=== PATIENT | female | born 1995 | race Caucasian/White ===

== ENCOUNTER 2020-01-13 12:02 | Emergency (ER) | payer OTHER ==
[~2020-01-13] VITALS: Ht 167.6 cm; Wt 62.5 kg
[2020-01-13] MEDS ORDERED: IOHEXOL 350 MG/ML 100 ML VIAL. IV ONE (12:45)
--- NOTE | 2020-01-13 12:51 | RAD ---
EXAM: CT Head without IV contrast INDICATION: Reason: DIZZINESS, BILATERAL UPPER EXTREMITY NUMBNESS, DYSPHASIA, DROOPIN / Spl. Instructions: / History: TECHNIQUE: Multi-detector row CT images were obtained of the head without the use of IV contrast. All CT scans performed at this facility utilize dose optimization techniques as appropriate to the exam, including the following: Automated exposure control and adjustment of the mA and/or KV according to patient size (this includes techniques or standardized protocols for targeted exams where dose is indication/reason for exam). COMPARISON: None FINDINGS: BRAIN PARENCHYMA: No evidence of acute intraparenchymal hemorrhage or infarct. No abnormal parenchymal density or mass. VENTRICLES & EXTRA-AXIAL SPACES: Ventricles are within normal limits. Basilar cisterns are patent. No pathologic extra-axial fluid collection or mass. ORBITS: Orbital contents are unremarkable. SINUSES: Visualized paranasal sinuses and mastoid air cells are clear. OSSEOUS & SOFT TISSUES: Calvarium and skull base are intact. IMPRESSION: Unremarkable CT of the head without contrast. FOR INTERNAL CODING PURPOSES Critical result: Findings discussed with VINCENT SANTIAGO at 01/13/2020 12:45 PM. RESULT CODE: (C) Electronically signed by: Cristal Raymundo MD (01/13/2020 12:48 PM) [id number]
[2020-01-13 12:53] LABS: BASO % 0 % (0-3); EOS # 0.1 x10^3/uL (0.0-0.7); EOS % 1 % (0-3); HEMATOCRIT 40.1 % (36.0-47.0); HEMOGLOBIN 13.4 g/dL (12.0-15.5); LYMPH # 1.4 x10^3/uL (1.0-4.8); LYMPH % 16 % (24-48); MEAN CORPUSCULAR HEMOGLOBIN 29 pg (25-35); MEAN CORPUSCULAR HGB CONC 34 g/dL (31-37); MEAN CORPUSCULAR VOLUME 86 fL (79-100); MONO # 0.5 x10^3/uL (0.0-1.1); MONO % 5 % (0-9); NEUT # 6.7 x10^3uL (1.8-7.7); NEUT % 78 % (31-73); PLATELET COUNT 205 x10^3/uL (140-400); RED BLOOD COUNT 4.67 x10^6/uL (3.50-5.40); RED CELL DISTRIBUTION WIDTH 12.5 % (11.5-14.5); WHITE BLOOD COUNT 8.7 x10^3/uL (4.0-11.0)
[2020-01-13 12:59] LABS: PREG TEST PT QUAL NEGATIVE (NEG)
[2020-01-13] MEDS ORDERED: CONTRAST GIVEN. MC PRN (13:00)
[2020-01-13 13:03] LABS: BILIRUBIN,URINE NEG (NEG); CLARITY,URINE CLEAR; COLOR,URINE COLORLESS; GLUCOSE,URINE NEG (NEG)
[2020-01-13 13:04] LABS: BACTERIA,URINE 0 /HPF (0-FEW); NITRITE,URINE NEG (NEG); RBC,URINE 0 /HPF (0-2); UROBILINOGEN,URINE 0.2 mg/dL (0.2 mg/dL); WBC,URINE 0 /HPF (0-4)
--- NOTE | 2020-01-13 13:07 | RAD ---
Examination: PORTABLE CHEST 1V History: dizzy Comparison/Correlation: None Findings: Portable upright frontal view chest was obtained. Heart size and pulmonary vasculature are normal. No infiltrate or pleural effusion. No pneumothorax. Bony structures are unremarkable. Impression: No active disease. Electronically signed by: Narendra Aviles MD (01/13/2020 1:04 PM) [facility]
[2020-01-13 13:09] LABS: CALCIUM 9.6 mg/dL (8.5-10.1); CREATININE 0.8 mg/dL (0.6-1.0); GFR 88.1; POTASSIUM 3.1 mmol/L (3.5-5.1)
[2020-01-13 13:15] LABS: ALBUMIN 4.6 g/dL (3.4-5.0); ALBUMIN/GLOBULIN RATIO 1.4 (1.0-1.7); TOTAL BILIRUBIN 0.4 mg/dL (0.2-1.0); TOTAL PROTEIN 7.9 g/dL (6.4-8.2)
[2020-01-13 13:40] LABS: BARBITURATES NEG (NEG); BENZODIAZEPINES NEG (NEG); CANNABINOIDS NEG (NEG); COCAINE NEG (NEG); METHADONE NEG (NEG); OPIATES NEG (NEG); PHENCYCLIDINE NEG (NEG)
[2020-01-13 13:41] LABS: AMPHETAMINE/METHAMPHETAMINE NEG (NEG)
[2020-01-13] MEDS ORDERED: diphenhydrAMINE 50 MG/ML VIAL IVP ONE (13:45)
[2020-01-13] MEDS ORDERED: METOCLOPRAMIDE HCL 10 MG/2 ML VIAL. IVP ONE (13:45)
[2020-01-13] MEDS ORDERED: ACETAMINOPHEN 325 MG TABLET PO ONE (13:45)
--- NOTE | 2020-01-13 13:56 | RAD ---
Examination: CT ANGIOGRAPHY HEAD AND NECK History: Reason: aphasia / Spl. Instructions: / History: Comparison/Correlation: CT head without contrast performed earlier the same day EXAM: 1. CTA HEAD WITH AND WITHOUT CONTRAST. 2. CTA NECK WITH AND WITHOUT CONTRAST. TECHNIQUE: Computed tomographic angiography of the head and neck was performed following IV contrast according to arteriography protocol. Three-dimensional reconstructions were also performed. Maximum intensity projection images were provided. FINDINGS: Angiographic findings: The aortic arch has a typical branching pattern. There is no arch vessel stenosis. Both common carotid arteries are patent without stenosis. Both internal carotid arteries are patent without stenosis. The external carotid systems are patent. The vertebral arteries are patent. The basilar artery is patent. Both posterior cerebral arteries are patent. Left posterior communicating artery is visualized. Right posterior communicating artery is developmentally absent. The intracranial internal carotid arteries demonstrate no stenosis. The middle cerebral arteries are patent. The anterior cerebral arteries are patent. The anterior communicating artery is visualized. Nonangiographic findings: There is no intracranial hemorrhage. Prado-white differentiation is preserved. The ventricles are normal in size and position. The paranasal sinuses appear clear. The orbits are unremarkable. The temporal bones are unremarkable. Bone windows reveal no suspicious lesions. The lung apices demonstrate no acute abnormality. The parotid glands and submandibular glands are unremarkable. The thyroid gland demonstrates no suspicious lesions. There are no laryngeal or pharyngeal masses. There are no pathologically enlarged lymph nodes. IMPRESSION: No large vessel occlusion, aneurysm, or dissection identified. No abnormal enhancement on arterial phase images provided. Unremarkable exam. PQRS Compliance Statement - Stenosis calculations for CT, MR and conventional angiography are based upon measurement of the distal ICA diameter in accordance with the NASCET methodology. Stenosis calculations for carotid ultrasound studies are derived from validated velocity criteria which are known to correlate with the NASCET methodology. *One or more of the following individualized dose reduction techniques were utilized for this examination: 1. Automated exposure control. 2. Adjustment of the mA and/or kV according to patient size. 3. Use of iterative reconstruction technique. Electronically signed by: Narendra Aviles MD (01/13/2020 1:53 PM) [facility]
[2020-01-13] MEDS ORDERED: ONDANSETRON PF 4 MG/2 ML VIAL. IVP ONE (14:15)
--- NOTE | 2020-01-13 14:28 | PHYS DOC ---
Past History Past Medical History: No Pertinent History Past Surgical History: No Surgical History Alcohol Use: None General Adult EDM: Chief Complaint: NEURO SYMPTOMS/DEFICITS HPI: HPI: 24-year-old female who denies any significant past medical history, presents to the ED with complaints of sudden onset sore throat, dizziness, tingling and fingers with a headache that started just prior to arrival, reporting changes in her speech -slurred and inability to get the words out. LMP 2 weeks ago. Review of Systems: Review of Systems: Constitutional: Denies fever or chills Eyes: Denies change in visual acuity HENT: Denies nasal congestion or sore throat Respiratory: Denies cough or shortness of breath Cardiovascular: Denies chest pain or edema GI: Denies abdominal pain, nausea, vomiting, bloody stools or diarrhea : Denies dysuria Musculoskeletal: Denies back pain or joint pain Integument: Denies rash Neurologic: Denies headache, focal weakness or sensory changes Endocrine: Denies polyuria or polydipsia Lymphatic: Denies swollen glands Psychiatric: Denies depression or anxiety Heart Score: Risk Factors: Risk Factors: DM, Current or recent (<one month) smoker, HTN, HLP, family history of CAD, obesity. Risk Scores: Score 0 - 3: 2.5% MACE over next 6 weeks - Discharge Home Score 4 - 6: 20.3% MACE over next 6 weeks - Admit for Clinical Observation Score 7 - 10: 72.7% MACE over next 6 weeks - Early Invasive Strategies Current Medications: Current Meds: Current Medications Medications (Trade) Dose Ordered Sig/Juan Start Time Stop Time Status Last Admin Dose Admin Acetaminophen (Tylenol) 650 mg 1X ONCE 01/13/20 13:45 01/13/20 13:46 DC 01/13/20 13:41 650 MG Diphenhydramine HCl (Benadryl) 25 mg 1X ONCE 01/13/20 13:45 01/13/20 13:46 DC 01/13/20 13:41 25 MG Info (Do NOT chart on this entry -- for MONITORING) 1 each PRN DAILY PRN 01/13/20 13:00 01/15/20 12:59 Iohexol (Omnipaque 350 Mg/ml) 100 ml 1X ONCE 01/13/20 12:45 01/13/20 12:46 DC 01/13/20 12:47 100 ML Lorazepam (Ativan Inj) 0.5 mg 1X ONCE 01/13/20 13:15 01/13/20 13:16 DC 01/13/20 12:57 0.5 MG Metoclopramide HCl (Reglan Vial) 10 mg 1X ONCE 01/13/20 13:45 01/13/20 13:46 DC 01/13/20 13:42 10 MG Ondansetron HCl (Zofran) 8 mg 1X ONCE 01/13/20 14:15 01/13/20 14:17 DC 01/13/20 14:17 8 MG Allergies: Allergies: Allergies Coded Allergies Type Severity Reaction Last Updated Verified No Known Drug Allergies 01/13/20 No Physical Exam: PE: Constitutional: Well developed, well nourished, no acute distress on arrival, HENT: Normocephalic, atraumatic, bilateral external ears normal, oropharynx moist, no oral exudates, nose normal. []-failed swallow test Eyes: PERRLA, EOMI, conjunctiva normal, no discharge. [] Neck: Normal range of motion, no tenderness, supple, no stridor. [] Cardiovascular:Heart rate regular rhythm, no murmur [] Lungs & Thorax: Bilateral breath sounds clear to auscultation [] Abdomen: Bowel sounds normal, soft, no tenderness, no masses, no pulsatile masses. [] Skin: Warm, dry, no erythema, no rash. [] Back: No tenderness, no CVA tenderness. [] Extremities: No tenderness, no cyanosis, no clubbing, ROM intact, no edema. [] Neurologic: Alert and oriented X 3, normal motor function, normal sensory function, no focal deficits noted. [] Psychologic: Affect normal, judgement normal, mood normal. [] Current Patient Data: Labs: Laboratory Tests Test 01/13/20 12:28 01/13/20 12:46 01/13/20 13:25 White Blood Count 8.7 x10^3/uL (4.0-11.0) Red Blood Count 4.67 x10^6/uL (3.50-5.40) Hemoglobin 13.4 g/dL (12.0-15.5) Hematocrit 40.1 % (36.0-47.0) Mean Corpuscular Volume 86 fL (79-100) Mean Corpuscular Hemoglobin 29 pg (25-35) Mean Corpuscular Hemoglobin Concent 34 g/dL (31-37) Red Cell Distribution Width 12.5 % (11.5-14.5) Platelet Count 205 x10^3/uL (140-400) Neutrophils (%) (Auto) 78 % (31-73) H Lymphocytes (%) (Auto) 16 % (24-48) L Monocytes (%) (Auto) 5 % (0-9) Eosinophils (%) (Auto) 1 % (0-3) Basophils (%) (Auto) 0 % (0-3) Neutrophils # (Auto) 6.7 x10^3uL (1.8-7.7) Lymphocytes # (Auto) 1.4 x10^3/uL (1.0-4.8) Monocytes # (Auto) 0.5 x10^3/uL (0.0-1.1) Eosinophils # (Auto) 0.1 x10^3/uL (0.0-0.7) Basophils # (Auto) 0.0 x10^3/uL (0.0-0.2) Urine Collection Type Unknown Urine Color Colorless Urine Clarity Clear Urine pH 7.5 Urine Specific [place] 1.015 Urine Protein Neg (NEG-TRACE) Urine Glucose (UA) Neg mg/dL (NEG) Urine Ketones (Stick) Neg mg/dL (NEG) Urine Blood Trace (NEG) Urine Nitrite Neg (NEG) Urine Bilirubin Neg (NEG) Urine Urobilinogen Dipstick 0.2 mg/dL (0.2 mg/dL) Urine Leukocyte Esterase Neg (NEG) Urine RBC 0 /HPF (0-2) Urine WBC 0 /HPF (0-4) Urine Squamous Epithelial Cells None /LPF Urine Bacteria 0 /HPF (0-FEW) Sodium Level 136 mmol/L (136-145) Potassium Level 3.1 mmol/L (3.5-5.1) L Chloride Level 100 mmol/L (98-107) Carbon Dioxide Level 24 mmol/L (21-32) Anion Gap 12 (6-14) Blood Urea Nitrogen 11 mg/dL (7-20) Creatinine 0.8 mg/dL (0.6-1.0) Estimated GFR (Cockcroft-Gault) 88.1 BUN/Creatinine Ratio 14 (6-20) Glucose Level 113 mg/dL (70-99) H Glucose (Fingerstick) 120 mg/dL (70-99) H Calcium Level 9.6 mg/dL (8.5-10.1) Magnesium Level 1.9 mg/dL (1.8-2.4) Total Bilirubin 0.4 mg/dL (0.2-1.0) Aspartate Amino Transferase (AST) 15 U/L (15-37) Alanine Aminotransferase (ALT) 18 U/L (14-59) Alkaline Phosphatase 64 U/L (46-116) Creatine Kinase 84 U/L (26-192) Troponin I Quantitative < 0.017 ng/mL (0-0.055) Total Protein 7.9 g/dL (6.4-8.2) Albumin 4.6 g/dL (3.4-5.0) Albumin/Globulin Ratio 1.4 (1.0-1.7) Serum Test, Qualitative Negative (NEG) POC Urine HCG, Qualitative hcg negative (Negative) Urine Opiates Screen Neg (NEG) Urine Methadone Screen Neg (NEG) Urine Barbiturates Neg (NEG) Urine Phencyclidine Screen Neg (NEG) Urine Amphetamine/Methamphetamine Neg (NEG) Urine Benzodiazepines Screen Neg (NEG) Urine Cocaine Screen Neg (NEG) Urine Cannabinoids Screen Neg (NEG) Urine Ethyl Alcohol Neg (NEG) Vital Signs: Vital Signs Date Time Temp Pulse Resp B/P (MAP) Pulse Ox O2 Delivery O2 Flow Rate FiO2 01/13/20 14:24 123 14 110/62 (78) 99 Room Air 01/13/20 12:16 97.8 EKG: EKG: [] Sinus tachycardia at 122 bpm, no axis deviation, normal intervals, inferior lateral T wave inversions, no ST elevations, Q waves in inferiorlateral leads Repeat EKG with sinus tachycardia at 122 bpm, no axis deviation, normal intervals, inferior lateral persistent T wave inversions and Q waves present, no ST elevations Radiology/Procedures: Radiology/Procedures: IMAGING REPORT Signed PATIENT: SHAI EDMONDSON AACCOUNT: [id number] : 1995 LOCATION: ER AGE: 24 SEX: F EXAM STATUS: REG ER ORD. PHYSICIAN: VINCENT SANTIAGO DO REASON: dizzy PROCEDURE: PORTABLE CHEST 1V Examination: PORTABLE CHEST 1V History: dizzy Comparison/Correlation: None Findings: Portable upright frontal view chest was obtained. Heart size and pulmonary vasculature are normal. No infiltrate or pleural effusion. No pneumothorax. Bony structures are unremarkable. Impression: No active disease. Electronically signed by: Narendra Dodge MD (01/13/2020 1:04 PM) [facility] DICTATED AND SIGNED BY: NARENDRA DODGE MD DATE: 01/13/20 1307 CC: YESSENIA CHIN DO; VINCENT SANTIAGO DO ~ IMAGING REPORT Signed PATIENT: SHAI EDMONDSON AACCOUNT: [id number] : 1995 LOCATION: ER AGE: 24 SEX: F EXAM STATUS: REG ER ORD. PHYSICIAN: VINCENT SANTIAGO DO REASON: DIZZINESS, BILATERAL UPPER EXTREMITY NUMBNESS, DYSPHASIA, DROOPIN PROCEDURE: CT CODE STROKE HEAD WO EXAM: CT Head without IV contrast INDICATION: Reason: DIZZINESS, BILATERAL UPPER EXTREMITY NUMBNESS, DYSPHASIA, DROOPIN / Spl. Instructions: / History: TECHNIQUE: Multi-detector row CT images were obtained of the head without the use of IV contrast. All CT scans performed at this facility utilize dose optimization techniques as appropriate to the exam, including the following: Automated exposure control and adjustment of the mA and/or KV according to patient size (this includes techniques or standardized protocols for targeted exams where dose is indication/reason for exam). COMPARISON: None FINDINGS: BRAIN PARENCHYMA: No evidence of acute intraparenchymal hemorrhage or infarct. No abnormal parenchymal density or mass. VENTRICLES & EXTRA-AXIAL SPACES: Ventricles are within normal limits. Basilar cisterns are patent. No pathologic extra-axial fluid collection or mass. ORBITS: Orbital contents are unremarkable. SINUSES: Visualized paranasal sinuses and mastoid air cells are clear. OSSEOUS & SOFT TISSUES: Calvarium and skull base are intact. IMPRESSION: Unremarkable CT of the head without contrast. FOR INTERNAL CODING PURPOSES Critical result: Findings discussed with VINCENT SANTIAGO at 01/13/2020 12:45 PM. RESULT CODE: (C) Electronically signed by: Chidi Raymundo MD (01/13/2020 12:48 PM) [id number] DICTATED AND SIGNED BY: CHIDI RAYMUNDO MD DATE: 01/13/20 1248 CC: YESSENIA CHIN DO; VINCENT SANTIAGO DO ~ IMAGING REPORT Signed PATIENT: SHAI EDMONDSON AACCOUNT: [id number] : 1995 LOCATION: ER AGE: 24 SEX: F EXAM STATUS: REG ER ORD. PHYSICIAN: VINCENT SANTIAGO DO REASON: aphasia PROCEDURE: CT ANGIOGRAPHY HEAD AND NECK Examination: CT ANGIOGRAPHY HEAD AND NECK History: Reason: aphasia / Spl. Instructions: / History: Comparison/Correlation: CT head without contrast performed earlier the same day EXAM: 1. CTA HEAD WITH AND WITHOUT CONTRAST. 2. CTA NECK WITH AND WITHOUT CONTRAST. TECHNIQUE: Computed tomographic angiography of the head and neck was performed following IV contrast according to arteriography protocol. Three-dimensional reconstructions were also performed. Maximum intensity projection images were provided. FINDINGS: Angiographic findings: The aortic arch has a typical branching pattern. There is no arch vessel stenosis. Both common carotid arteries are patent without stenosis. Both internal carotid arteries are patent without stenosis. The external carotid systems are patent. The vertebral arteries are patent. The basilar artery is patent. Both posterior cerebral arteries are patent. Left posterior communicating artery is visualized. Right posterior communicating artery is developmentally absent. The intracranial internal carotid arteries demonstrate no stenosis. The middle cerebral arteries are patent. The anterior cerebral arteries are patent. The anterior communicating artery is visualized. Nonangiographic findings: There is no intracranial hemorrhage. Prado-white differentiation is preserved. The ventricles are normal in size and position. The paranasal sinuses appear clear. The orbits are unremarkable. The temporal bones are unremarkable. Bone windows reveal no suspicious lesions. The lung apices demonstrate no acute abnormality. The parotid glands and submandibular glands are unremarkable. The thyroid gland demonstrates no suspicious lesions. There are no laryngeal or pharyngeal masses. There are no pathologically enlarged lymph nodes. IMPRESSION: No large vessel occlusion, aneurysm, or dissection identified. No abnormal enhancement on arterial phase images provided. Unremarkable exam. PQRS Compliance Statement - Stenosis calculations for CT, MR and conventional angiography are based upon measurement of the distal ICA diameter in accordance with the NASCET methodology. Stenosis calculations for carotid ultrasound studies are derived from validated velocity criteria which are known to correlate with the NASCET methodology. *One or more of the following individualized dose reduction techniques were utilized for this examination: 1. Automated exposure control. 2. Adjustment of the mA and/or kV according to patient size. 3. Use of iterative reconstruction technique. Electronically signed by: Narendra Dodge MD (01/13/2020 1:53 PM) [facility] DICTATED AND SIGNED BY: NARENDRA DODGE MD DATE: 01/13/20 4866 CC: YESSENIA CHIN DO; VINCENT SANTIAGO DO ~ Impressions: 2 points NIH Stroke Scale (+1 each for aphasia/dysarthria) Course & Med Decision Making: Course & Med Decision Making Pertinent Labs and Imaging studies reviewed. (See chart for details) Aphasia resolved after arrival. Pt with persistent gradual onset severe right- sided headache with nausea and vomiting requiring multiple medications. Family called and spoke to RN who reports there is a strong family history of complex migraine headaches. Patient states she has had no prior formal diagnosis of migraines. CT images were performed after headache onset. Ddx includes cerebral venous thrombosis, hemiplegic vs complex migraine, lower suspicion for meningitis vs benign intracranial hypertension (thin female) vs spontaneous SAH (< 6hr presentation, CT w/100% sensitivity). Will transfer to [place] for neurology evaluation consider MRI. Accepted by medicine physician Dr. Mckeon. Pt stable at time of admission and agrees with this plan. Seble Disclaimer: Seble Disclaimer: This electronic medical record was generated, in whole or in part, using a voice recognition dictation system. Departure Departure: Impression: Primary Impression: Aphasia Additional Impressions: Headache Nausea Disposition: 05 DC/TRF OTHER TYPE INSTITUTI (to Dr Noland Middleton) Condition: GUARDED Referrals: YESSENIA CHIN DO (PCP) VINCENT SANTIAGO DO Jan 13, 2020 14:28
[2020-01-13] MEDS ORDERED: HYDROmorphone PF 1 MG/ML DISP.SYRIN IVP ONE (15:00)
[2020-01-13] MEDS ORDERED: PROCHLORPERAZINE 10 MG/2 ML VIAL. IV ONE (15:00)
[2020-01-13] MEDS ORDERED: IV NORMAL SALINE 1,000ML 1,000 ML IV ONE (15:00)
[2020-01-13] MEDS ORDERED: DEXAMETHASONE SOD PHOS 10 MG/ML VIAL. IV ONE (15:00)
--- NOTE | 2020-01-13 15:16 | EKG ---
[address] [address] Test Date: 2020-01-13 Test Time: 12:32:14 Pat Name: SHAI EDMONDSON Department: Room: Gender: F Gravity Manager: NATHAN : 1995 Requested By: VINCENT SANTIAGO Order Number: [id number] Reading MD: Measurements Intervals [place] Rate: 122 P: 62 NV: 124 QRS: 72 QRSD: 104 T: -57 QT: 296 QTc: 423 Interpretive Statements SINUS TACHYCARDIA INCOMPLETE RIGHT BUNDLE BRANCH BLOCK ST & T ABNORMALITY, CONSIDER ANTERIOR ISCHEMIA OR LEFT VENTRICULAR STRAIN INFEROLATERAL ISCHEMIA OR LEFT VENTRICULAR STRAIN ABNORMAL ECG RI6.02 No previous ECG available for comparison
--- NOTE | 2020-01-13 15:23 | EKG ---
[address] [address] Test Date: 2020-01-13 Test Time: 14:51:03 Pat Name: SHAI EDMONDSON Department: Room: Gender: F Order Expediter: NATHAN : 1995 Requested By: VINCENT SANTIAGO Order Number: [id number] Reading MD: Measurements Intervals [place] Rate: 122 P: 39 MD: 140 QRS: 79 QRSD: 102 T: -52 QT: 310 QTc: 443 Interpretive Statements SINUS TACHYCARDIA INCOMPLETE RIGHT BUNDLE BRANCH BLOCK ST & T ABNORMALITY, CONSIDER ANTERIOR ISCHEMIA OR LEFT VENTRICULAR STRAIN INFEROLATERAL ISCHEMIA OR LEFT VENTRICULAR STRAIN ABNORMAL ECG RI6.02 No previous ECG available for comparison
[2020-01-13 18:16] VITALS: BP 110/89
== END 2020-01-13 18:31 | disposition short-term general hospital (02) ==
LOC: ER 12:02
DX: R51.9 Headache, unspecified (principal); R47.01 Aphasia; R11.0 Nausea; J02.9 Acute pharyngitis, unspecified; R42 Dizziness and giddiness
CPT/HCPCS: 36415; 70450; 70496; 70498; 71045; 80053; 80307; 81001; 81025; 82550; 82947; 83735; 84484; 84703; 85025; 93005; 96361; 96374; 96375; 99285; J0780; J1100; J1170; J1200; J2060; J2405; J2765; J7030; Q9967